=== PATIENT | male | born 1970 | race African-American/Black ===

== ENCOUNTER 2023-09-01 05:20 | Inpatient (IN) | payer OTHER ==
[~2023-09-01] VITALS: Ht 188 cm; Wt 166.9 kg
[2023-09-01] MEDS ORDERED: SODIUM CHLORIDE 0.9% 1,000 ML IV SCH (05:30)
[2023-09-01] MEDS ORDERED: ERGO1250 PO ×2 (05:32→14:01)
[2023-09-01] MEDS ORDERED: LIP40 PO (05:32)
[2023-09-01] MEDS ORDERED: ASPI-1497 PO (05:32)
[2023-09-01] MEDS ORDERED: ROCURONIUM BROMIDE 10MG/ML VIAL 5ML IV ONE ×2 (07:20→08:38)
[2023-09-01] MEDS ORDERED: SUCCINYLCHOLINE CHLORIDE 200MG/10ML IV ONE (07:20)
[2023-09-01] MEDS ORDERED: ONDANSETRON HCL 4MG/2ML INJ ONE (07:20)
[2023-09-01] MEDS ORDERED: DEXAMETHASONE 4MG/ML 1ML VIAL ONE (07:20)
[2023-09-01] MEDS ORDERED: METOCLOPRAMIDE HCL 10MG/2ML VIAL ONE (07:20)
[2023-09-01] MEDS ORDERED: LIDOCAINE HCL/PF 1% 10 MG/ML 5ML VIAL ONE (07:20)
[2023-09-01] MEDS ORDERED: FENTANYL CITRATE/PF 50MCG/ML 2ML VIAL ONE ×2 (07:21→08:00)
[2023-09-01] MEDS ORDERED: PROPOFOL 200MG/20ML VIAL IV ONE (07:21)
[2023-09-01] MEDS ORDERED: LIDOCAINE HCL 1% 20ML VIAL (Pyxis) INJ ONE (07:24)
[2023-09-01] MEDS ORDERED: SEVOFLURANE 250 ML LIQUID INH ONE (07:31)
[2023-09-01] MEDS ORDERED: BUPIVACAINE HCL/PF 0.5% (5MG/ML) 10ML ONE (07:41)
[2023-09-01] MEDS ORDERED: GLYCOPYRROLATE 0.2 MG/ML 2ML VIAL ONE ×2 (07:47→09:28)
[2023-09-01] MEDS ORDERED: NEOSTIGMINE METHYLSULFATE 1MG/ML 10 ML VIAL ONE (07:47)
[2023-09-01] MEDS ORDERED: ALBUMIN HUMAN 12.5G/250ML (5%) IV ONE (08:11)
[2023-09-01] MEDS ORDERED: HYDROMORPHONE HCL/PF 2MG/ML CPJ ONE (08:35)
[2023-09-01] MEDS ORDERED: ONDANSETRON HCL 4MG/2ML INJ IV PRN (09:30)
[2023-09-01] MEDS ORDERED: MORPHINE SULFATE 4 MG/ML CPJ (NOT FOR IM USE) IV PRN (09:30)
[2023-09-01] MEDS ORDERED: HYDROMORPHONE HCL/PF 2MG/ML CPJ IV PRN (11:30)
[2023-09-01] MEDS ORDERED: FENTANYL CITRATE/PF 50MCG/ML 2ML VIAL IV PRN (11:30)
[2023-09-01] MEDS ORDERED: NALOXONE HCL 0.4MG/ML VIAL IV PRN (12:45)
[2023-09-01] MEDS: DEXT 5%/0.45% NACL KCL 20MEQ/L 1,000 ML IV SCH (16:00)
[2023-09-01] MEDS: MORPHINE SULFATE 2 MG/ML CPJ (NOT FOR IM USE) IV PRN (16:46)
[2023-09-01 19:20] VITALS: BP 122/63; PULSE 65; RESP 20; TEMP 97.7
[2023-09-01 20:30] VITALS: BP 111/77; PULSE 17; RESP 17; TEMP 97.7
[2023-09-01] MEDS: FAMOTIDINE 20MG/2ML VIAL IV NR (21:22)
[2023-09-02] VITALS: BP 100/65; PULSE 103; RESP 18; TEMP 98.1
[2023-09-02 04:00] VITALS: BP 110/65; PULSE 91; RESP 18; TEMP 97.7
[2023-09-02 06:50] LABS: CALCIUM 8.8 mg/dL (8.7-10.4); CARBON DIOXIDE 28 mEq/L (21-32); CHLORIDE 106 mEq/L (98-107); GLUCOSE 125 mg/dL (70-105); POTASSIUM 4.9 mEq/L (3.5-5.1); SODIUM 141 mEq/L (136-145); UREA NITROGEN BLOOD 11 mg/dL (9-23)
[2023-09-02 06:59] LABS: HEMATOCRIT 39.9 % (42.0-52.0); HEMOGLOBIN 12.7 g/dL (14.0-18.0); MEAN CORPUSCULAR HEMOGLOBIN 25.3 pg (28.0-32.0); MEAN CORPUSCULAR HGB CONC 31.7 g/dL (31.0-37.0); MEAN CORPUSCULAR VOLUME 79.9 fL (80.0-94.0); PLATELET 291 x1000/uL (130-400); RED CELL DISTRIBUTION WIDTH 19.2 % (11.6-14.6)
[2023-09-02 08:00] VITALS: BP 112/74; PULSE 90; RESP 17; TEMP 97.5
[2023-09-02] MEDS: FAMOTIDINE 20MG/2ML VIAL IV SCH (08:23)
[2023-09-02 12:00] VITALS: BP 120/69; PULSE 78; RESP 19; TEMP 98.8
[2023-09-02 16:00] VITALS: BP 115/77; PULSE 96; RESP 18; TEMP 98.1
[2023-09-02 20:00] VITALS: BP 101/47; PULSE 88; RESP 19; TEMP 97.3
[2023-09-03] VITALS: BP 101/62; PULSE 89; RESP 19; TEMP 97.5
[2023-09-03 07:36] LABS: BASOPHILS % 0.2 % (0.0-2.0); DIFFERENTIAL COMMENT 0; EOSINOPHILS % 0.1 % (0.0-5.0); HEMATOCRIT. 37.5 % (42.0-52.0); HEMOGLOBIN. 11.4 g/dL (14.0-18.0); LYMPHOCYTES % 12.3 % (20.0-50.0); MEAN CORPUSCULAR HEMOGLOBIN 24.4 pg (28.0-32.0); MEAN CORPUSCULAR HGB CONC 30.4 g/dL (31.0-37.0); MEAN CORPUSCULAR VOLUME 80.4 fL (80.0-94.0); MEAN PLATELET VOLUME 8.9 fl (7.4-10.4); MONOCYTES % 10.9 % (2.0-8.0); NEUTROPHILS % 76.5 % (40.0-76.0); PLATELET 255 x1000/uL (130-400); RED BLOOD CELL COUNT 4.66 mill/uL (4.7-6.1); RED CELL DISTRIBUTION WIDTH 19.5 % (11.6-14.6); WHITE BLOOD COUNT 19.1 x1000/uL (4.5-11.0)
[2023-09-03 08:00] VITALS: BP 124/80; PULSE 82; RESP 18; TEMP 97.5
[2023-09-03 08:28] LABS: ALANINE AMINOTRANSFERASE 11 IU/L (10-49); ALBUMIN 3.8 g/dL (3.2-4.8); ASPARTATE AMINOTRANSFERASE 13 IU/L (<34); BILIRUBIN TOTAL 0.3 mg/dL (0.1-1.0); CALCIUM 8.6 mg/dL (8.7-10.4); CARBON DIOXIDE 33 mEq/L (21-32); CHLORIDE 104 mEq/L (98-107); CHOLESTEROL 97 mg/dL (<200); GLUCOSE 96 mg/dL (70-105); HDL CHOLESTEROL 45 mg/dL (>55); LDL CHOLESTEROL 43 mg/dL (5-100); POTASSIUM 4.6 mEq/L (3.5-5.1); PROTEIN TOTAL 6.3 g/dL (6.0-8.3); SODIUM 139 mEq/L (136-145); TRIGLYCERIDE 73 mg/dL (0-150); UREA NITROGEN BLOOD 10 mg/dL (9-23)
[2023-09-03 12:00] VITALS: BP 126/85; PULSE 75; RESP 19; TEMP 96.6
[2023-09-03 16:00] VITALS: BP 112/78; PULSE 87; RESP 20; TEMP 97.6
[2023-09-03 20:00] VITALS: BP 115/77; PULSE 87; RESP 16; TEMP 100.6
[2023-09-04] VITALS (7 sets, daily range): BP systolic 114–131; BP diastolic 78–82; PULSE 81–92; RESP 13–20; TEMP 97.5–100
[2023-09-05] VITALS: BP 123/82; PULSE 91; RESP 16; TEMP 98.1
[2023-09-05 00:55] VITALS: RESP 15
[2023-09-05 08:00] VITALS: BP 122/80; PULSE 95; RESP 19; TEMP 98.2
[2023-09-05 12:00] VITALS: BP 136/91; PULSE 92; RESP 19; TEMP 98.8
[2023-09-05 16:00] VITALS: BP 109/67; PULSE 63; RESP 19; TEMP 98.1
[2023-09-06] VITALS (7 sets, daily range): BP systolic 88–131; BP diastolic 53–81; PULSE 81–101; RESP 16–20; TEMP 97.2–98.8
[2023-09-06] MEDS: MORPHINE SULFATE 2 MG/ML CPJ (NOT FOR IM USE) IV PRN (22:16)
[2023-09-07 04:00] VITALS: BP 85/51; PULSE 98; RESP 20; TEMP 97.3
[2023-09-07 08:00] VITALS: BP 131/72; PULSE 78; RESP 18; TEMP 98.1
[2023-09-07 12:00] VITALS: BP 117/76; PULSE 102; RESP 18; TEMP 98.6
[2023-09-07] MEDS ORDERED: NALOXONE HCL 0.4MG/ML VIAL IV PRN (14:15)
[2023-09-07 16:00] VITALS: BP 117/76; PULSE 102; RESP 18; TEMP 98.6
[2023-09-07 20:00] VITALS: BP 110/65; PULSE 89; RESP 17; TEMP 97.3
[2023-09-08] VITALS (8 sets, daily range): BP systolic 97–118; BP diastolic 52–68; PULSE 78–109; RESP 17–20; TEMP 97.2–98.1; O2SAT 97–99
[2023-09-08] MEDS: IPRATROPIUM/ALBUTEROL 0.5-3(2.5)MG/3ML NEB HHN PRN (00:11)
[2023-09-09] VITALS: BP 124/64; PULSE 89; RESP 16; TEMP 98.1
[2023-09-09 04:00] VITALS: BP 94/53; PULSE 91; RESP 17; TEMP 97.3
[2023-09-09 08:00] VITALS: BP 111/70; PULSE 92; RESP 19; TEMP 96.3
[2023-09-09 12:00] VITALS: BP 102/68; PULSE 88; RESP 17; TEMP 95.5
[2023-09-09 16:00] VITALS: BP 112/74; PULSE 91; RESP 18; TEMP 99
[2023-09-09 20:00] VITALS: BP 115/69; PULSE 94; RESP 16; TEMP 97
[2023-09-09] MEDS: ENOXAPARIN 40MG/0.4ML SYR SUBCUT SCH (21:52)
[2023-09-10] VITALS: BP 114/78; PULSE 70; RESP 19; TEMP 98.4
[2023-09-10 00:38] VITALS: RESP 18
[2023-09-10 04:00] VITALS: BP 113/72; PULSE 82; RESP 17; TEMP 97.5
[2023-09-10] MEDS: KETOROLAC 15MG/ML VIAL IV PRN (04:26)
[2023-09-10 08:00] VITALS: BP 111/65; PULSE 60; RESP 19; TEMP 97.7
[2023-09-10 11:08] VITALS: BP 110/65; PULSE 60; TEMP 97.7; O2SAT 97
[2023-09-10 16:27] VITALS: BP 110/65; PULSE 60; RESP 19
== END 2023-09-10 17:00 | disposition home health service (06) | DRG 982 ==
LOC: OR 05:20 → 6EST 11:54
PROVIDERS: ADMIT Surgery; ATTEND Surgery
PROC: 0DBN0ZZ Excision of Sigmoid Colon, Open Approach (ICD-10-PCS; principal; 2023-09-01)
DX: N32.1 Vesicointestinal fistula (principal); K57.32 Diverticulitis of large intestine without perforation or abscess without bleeding; K63.2 Fistula of intestine; Z68.42 Body mass index [BMI] 45.0-49.9, adult; E66.01 Morbid (severe) obesity due to excess calories; G47.33 Obstructive sleep apnea (adult) (pediatric); E78.00 Pure hypercholesterolemia, unspecified; K42.9 Umbilical hernia without obstruction or gangrene; R73.03 Prediabetes; Z86.73 Personal history of transient ischemic attack (TIA), and cerebral infarction without residual deficits
CPT/HCPCS: 36415; 80048; 80053; 80061; 82962; 83036; 83735; 84100; 85025; 85027; 86850; 86900; 86920; 88307; 94640; 94660; 97110; 97116; 97162; 97166; 97530; 97535; J0330; J1100; J1170; J1650; J1885; J2270; J2405; J2704; J2710; J2765; J3010; J3490; J7030; P9041